=== PATIENT | female | born 1950 | race Caucasian/White ===

== ENCOUNTER 2017-01-14 10:44 | Observation (INO) | payer MEDICARE, BC ==
--- NOTE | 2017-01-14 11:56 | RAD ---
INDICATION: Chest pain. COMPARISON: There are no prior studies available for comparison. TECHNIQUE: A portable view of the chest was obtained. FINDINGS: Cardiac and mediastinal contours appear to be within normal limits. There is a 4 mm faint calcific density which projects over the right midlung suggestive of old granulomatous disease. The lungs are otherwise clear. No pleural effusion is seen. IMPRESSION: NO EVIDENCE FOR ACUTE DISEASE.
[2017-01-14 12:01] LABS: Hematocrit 36 % (35-47); Hemoglobin 12.2 g/dl (12.0-16.0); Mean Corpuscular HGB Conc 34 g/dl (31-36); Mean Corpuscular Hemoglobin 32 pg (27-31); Mean Corpuscular Volume 94 fL (80-97); Mean Platelet Volume 9 um3 (7.4-10.4); Red Blood Count 3.85 10^6/ul (4.0-5.4); Red Cell Distribution Width 13 % (10.5-15); White Blood Count 7.8 10^3/ul (3.5-10.8)
[2017-01-14 12:14] LABS: Albumin 3.8 g/dL (3.2-5.2); BUN/Creatinine Ratio 14.2 (8-20); Calcium 9.1 mg/dL (8.6-10.3); EGFR Non-African American 48.2 (>60); Globulin 3.2 g/dL (2-4); Potassium 3.6 mmol/L (3.5-5.0); Total Bilirubin 0.8 mg/dL (0.2-1.0)
[2017-01-14] MEDS ORDERED: Fluticasone NASAL SPRAY 50MCG* 16 gm SPRAY BTL BOTH NARES PRN (14:06)
[2017-01-14] MEDS ORDERED: Albuterol HFA INHALER* 8 gm MDI INH PRN (14:06)
[2017-01-14] MEDS ORDERED: Triamcinolone 0.5% OINT * 15 GM TUBE TOPICAL PRN (14:06)
[2017-01-14] MEDS ORDERED: Dextrose 50% Syringe 50 ML* 25 GM/50 ML SYRINGE IV PUSH PRN (14:10)
[2017-01-14] MEDS ORDERED: hydrALAZINE IV* 20 MG/ML VIAL IV SLOW PU PRN (14:13)
[2017-01-14] MEDS ORDERED: NS 0.9% 1000 ML* 1,000 ML IV SCH (14:45)
--- NOTE | 2017-01-14 15:34 | ED ---
Day Lora Alfonso, scribed for Jam Sims MD on 01/14/17 at 1105 . Abdominal Pain/Female - HPI Summary HPI Summary: This patient is a 66 year old F presenting to [facility] accompanied by with a chief complaint of epigastric pain which began at 1000 this morning. The CC is described as gassy and a pressure. The patient rates the current pain 0/ 10 in severity. Symptoms aggravated by standing. Symptoms alleviated by spontaneous resolution. Symptoms not alleviated by protonix and zantac last night. Patient reports SOB (one month, and currently resolved), and calf swelling (at night). Patient denies diaphoresis, and nausea. PMHx of DM, HTN, and CAD (stent in 2016) - History of Current Complaint Chief Complaint: EDChestPainROMI Stated Complaint: SHORT OF BREATH, CHEST PAIN Time Seen by Provider: 01/14/17 11:02 Hx Obtained From: Patient Onset/Duration: Sudden Onset, Lasting Hours - 1000 today, Still Present Timing: Constant Severity Initially: Mild Severity Currently: None Pain Intensity: 0 Pain Scale Used: 0-10 Numeric Location: Epigastric Character: Other: - gassy and a pressure Aggravating Factor(s): Other: - Standing Alleviating Factor(s): Spontaneous Resolution Associated Signs and Symptoms: Positive: Other: - Patient reports SOB (one month , and currently resolved), and calf swelling (at night). Patient denies diaphoresis, and nausea. Allergies/Adverse Reactions: Allergies Allergy/AdvReac Type Severity Reaction Status Date / Time Adhesive Tape Allergy Rash Verified 01/14/17 11:33 Amoxicillin Allergy Rash Verified 01/14/17 11:33 Aspirin Allergy Bleeding Verified 01/14/17 11:33 Cefaclor [From Ceclor] Allergy Rash Verified 01/14/17 11:33 Cefuroxime [From Ceftin] Allergy Rash Verified 01/14/17 11:33 Ciprofloxacin [From Cipro] Allergy Rash Verified 01/14/17 11:33 Clarithromycin [From Biaxin] Allergy Rash Verified 01/14/17 11:33 Diclofenac [From Arthrotec] Allergy Headache Verified 01/14/17 11:33 Erythromycin Allergy Rash Verified 01/14/17 11:33 Meperidine [From Demerol HCl] Allergy Nausea Verified 01/14/17 11:33 Misoprostol [From Arthrotec] Allergy Headache Verified 01/14/17 11:33 Home Medications: Home Medications Albuterol inh POWDER (NF) [Proair Respiclick] 1 puff INH Q6HR PRN 01/14/17 [ History Confirmed 01/14/17] Aspirin EC Low Dose* [Ecotrin EC Low Dose 81 MG*] 81 mg PO DAILY 01/14/17 [ History Confirmed 01/14/17] Atorvastatin* [Lipitor*] 40 mg PO DAILY 01/14/17 [History Confirmed 01/14/17] Bisoprolol & Hydrochlorothiazi [Ziac 5-6.25 mg-] 1 tab PO DAILY 01/14/17 [ History Confirmed 01/14/17] Calcium Carbonate [Calcium 600] 600 mg PO BID 01/14/17 [History Confirmed ] Cyanocobalamin TAB* [Vitamin B12 TAB*] 500 mcg PO DAILY 01/14/17 [History Confirmed 01/14/17] Flaxseed (Linseed) [Flaxseed Oil] 1,400 mg PO QAM 01/14/17 [History Confirmed ] Fluocinonide 0.05% CM (NF) [Lidex 0.05% CREAM (NF)] 1 applic TOPICAL QPM PRN 06/01 [History Confirmed 01/14/17] Fluticasone NASAL SPRAY 50MCG* [Flonase NASAL SPRAY 50MCG*] 2 spray BOTH NARES QAM PRN 01/14/17 [History Confirmed 01/14/17] Gabapentin CAP(*) [Neurontin 300 CAP(*)] 300 mg PO TID 01/14/17 [History Confirmed 01/14/17] Levothyroxine TAB* [Synthroid TAB*] 50 mcg PO QAM 01/14/17 [History Confirmed ] Olmesartan Medoxomil-Hydrochlo [Benicar Hct 40-25 mg] 0.5 tab PO DAILY 01/14/17 [History Confirmed 01/14/17] Triamcinolone 0.1% CREAM(NF) [Kenalog Cream 0.1%(NF)] 1 applic TOPICAL BID PRN 01/14/17 [History Confirmed 01/14/17] PMH/Surg Hx/FS Hx/Imm Hx Endocrine/Hematology History: Reports: Hx Diabetes Cardiovascular History: Reports: Hx Coronary Artery Disease, Hx Hypertension - Surgical History Surgery Procedure, Year, and Place: LEFT KNEE, CHOLECYSTECTOMY, SINUS Infectious Disease History: Denies: Traveled Outside the [place] in Last 30 Days - Family History Known Family History: Positive: Cardiac Disease, Diabetes - Social History Alcohol Use: None Substance Use Type: Reports: None Hx Tobacco Use: No Smoking Status (MU): Never Smoked Tobacco Review of Systems Negative: Skin Diaphoresis Positive: Shortness Of Breath - one month, and currently resolved Positive: Abdominal Pain - Epigastric. Negative: Nausea Positive: Other - calf swelling (at night) All Other Systems Reviewed And Are Negative: Yes Physical Exam Triage Information Reviewed: Yes Vital Signs On Initial Exam: Initial Vitals Temp Pulse Resp BP Pulse Ox 97.4 F 67 20 131/66 98 01/14/17 10:54 01/14/17 10:54 01/14/17 10:54 01/14/17 10:54 01/14/17 10:54 Vital Signs Reviewed: Yes Appearance: Positive: Well-Appearing, No Pain Distress Skin: Positive: Warm, Skin Color Reflects Adequate Perfusion, Dry Head/Face: Positive: Normal Head/Face Inspection Eyes: Positive: Normal ENT: Positive: Normal ENT inspection Neck: Positive: Supple, Nontender Respiratory/Lung Sounds: Positive: Clear to Auscultation, Breath Sounds Present Cardiovascular: Positive: RRR Abdomen Description: Positive: Nontender, Soft Bowel Sounds: Positive: Present Musculoskeletal: Positive: Normal Neurological: Positive: Normal, Sensory/Motor Intact, Alert, Oriented to Person Place, Time, CN Intact II-III Psychiatric: Positive: Affect/Mood Appropriate Diagnostics - Vital Signs Vital Signs Temp Pulse Resp BP Pulse Ox 01/14/17 10:54 97.4 F 67 20 131/66 98 - Laboratory Lab Results: Lab Results 01/14/17 01/14/17 01/14/17 Range/Units 11:20 11:20 11:20 WBC 7.8 (3.5-10.8) 10^3/ul RBC 3.85 L (4.0-5.4) 10^6/ul Hgb 12.2 (12.0-16.0) g/dl Hct 36 (35-47) % MCV 94 (80-97) fL MCH 32 H (27-31) pg MCHC 34 (31-36) g/dl RDW 13 (10.5-15) % Plt Count 229 (150-450) 10^3/ul MPV 9 (7.4-10.4) um3 Neut % (Auto) 65.9 (38-83) % Lymph % (Auto) 23.5 L (25-47) % [place] % (Auto) 8.0 (1-9) % Eos % (Auto) 1.7 (0-6) % Baso % (Auto) 0.9 (0-2) % Absolute Neuts (auto) 5.1 (1.5-7.7) 10^3/ul Absolute Lymphs (auto) 1.8 (1.0-4.8) 10^3/ul Absolute Monos (auto) 0.6 (0-0.8) 10^3/ul Absolute Eos (auto) 0.1 (0-0.6) 10^3/ul Absolute Basos (auto) 0.1 (0-0.2) 10^3/ul Absolute Nucleated RBC 0.01 10^3/ul Nucleated RBC % 0.1 INR (Anticoag Therapy) (0.89-1.11) D-Dimer, Quantitative (Less Than 230) ng/mL Sodium 139 (133-145) mmol/L Potassium 3.6 (3.5-5.0) mmol/L Chloride 109 (101-111) mmol/L Carbon Dioxide 20 L (22-32) mmol/L Anion Gap 10 (2-11) mmol/L BUN 16 (6-24) mg/dL Creatinine 1.13 H (0.51-0.95) mg/dL Est GFR ( Amer) Pending Est GFR (Non-Af Amer) Pending BUN/Creatinine Ratio 14.2 (8-20) Glucose 196 H (70-100) mg/dL Lactic Acid 2.6 H* (0.5-2.0) mmol/L Calcium 9.1 (8.6-10.3) mg/dL Total Bilirubin Pending AST Pending ALT Pending Alkaline Phosphatase Pending Troponin I 0.00 (<0.04) ng/mL Total Protein 7.0 (6.4-8.9) g/dL Albumin 3.8 (3.2-5.2) g/dL Globulin Pending Albumin/Globulin Ratio Pending 01/14/17 Range/Units 11:20 WBC (3.5-10.8) 10^3/ul RBC (4.0-5.4) 10^6/ul Hgb (12.0-16.0) g/dl Hct (35-47) % MCV (80-97) fL MCH (27-31) pg MCHC (31-36) g/dl RDW (10.5-15) % Plt Count (150-450) 10^3/ul MPV (7.4-10.4) um3 Neut % (Auto) (38-83) % Lymph % (Auto) (25-47) % [place] % (Auto) (1-9) % Eos % (Auto) (0-6) % Baso % (Auto) (0-2) % Absolute Neuts (auto) (1.5-7.7) 10^3/ul Absolute Lymphs (auto) (1.0-4.8) 10^3/ul Absolute Monos (auto) (0-0.8) 10^3/ul Absolute Eos (auto) (0-0.6) 10^3/ul Absolute Basos (auto) (0-0.2) 10^3/ul Absolute Nucleated RBC 10^3/ul Nucleated RBC % INR (Anticoag Therapy) 0.86 L (0.89-1.11) D-Dimer, Quantitative 392 H (Less Than 230) ng/mL Sodium (133-145) mmol/L Potassium (3.5-5.0) mmol/L Chloride (101-111) mmol/L Carbon Dioxide (22-32) mmol/L Anion Gap (2-11) mmol/L BUN (6-24) mg/dL Creatinine (0.51-0.95) mg/dL Est GFR ( Amer) Est GFR (Non-Af Amer) BUN/Creatinine Ratio (8-20) Glucose (70-100) mg/dL Lactic Acid (0.5-2.0) mmol/L Calcium (8.6-10.3) mg/dL Total Bilirubin AST ALT Alkaline Phosphatase Troponin I (<0.04) ng/mL Total Protein (6.4-8.9) g/dL Albumin (3.2-5.2) g/dL Globulin Albumin/Globulin Ratio Result Diagrams: 01/14/17 11:20 01/14/17 11:20 Lab Statement: Any lab studies that have been ordered have been reviewed, and results considered in the medical decision making process. - Radiology CXR Radiology Interpretation Completed By: Radiologist - NO EVIDENCE FOR ACUTE DISEASE. ED physician has reviewed this radiology report and agrees. - EKG 1100 Cardiac Rate: NL - BPM 60 EKG Rhythm: Sinus Rhythm EKG Interpretation: First degree block Abdominal Pain Fem Course/Dx - Course Course Of Treatment: Ms. Reed did well here in the ED however, she had CP and is a high risk patient and will be admitted to the hopitalist service. - Diagnoses Provider Diagnoses: Chest pain - Provider Notifications Discussed Care Of Patient With: Donna Berrios Time Discussed With Above Provider: 13:35 Instructed by Provider To: Other - Consulted Dr. Berrios (hospitalist) who agrees to admit. Discharge - Discharge Plan Condition: Stable Disposition: ADMITTED TO [facility] The documentation as recorded by the Day castaneda Alfonso accurately reflects the service I personally performed and the decisions made by , Jam Sims MD.
[2017-01-14] MEDS: Insulin LISPRO* 1 UNITS UNIT SUBCUT SCH ×2 (17:19→20:31)
[2017-01-14] MEDS: Omeprazole CAP* 20 MG PO SCH (17:34)
[2017-01-14] MEDS: Bethanechol TAB* 25 MG PO SCH ×2 (17:34→20:31)
--- NOTE | 2017-01-14 17:42 | ECHO ---
Patient: MAXIMO LITTLEJOHN Rec#: [id number] : 1950 Date: 01/14/2017 Age: 66y Height: 167.64 cm / 66.0 in Weight: 87.77 kg / 193.4 lbs Sex: F BSA: 1.97 Room#: [facility] Admit Date#: 01/14/2017 Type: Inpatient Referring: Donna Johnson MD Reading: Herman Emanuel DO Flight Information Expediter: Tatyana Rushing RDCS CC: Elina James MD Transthoracic Echocardiogram Indication: Chest pain, SOB BP: 159/60 HR: 54 Rhythm: Bradycardia Findings History: S/P PCI 07/01 Sarah, HTN, and DM. Technical Comments: The study quality is fair. The study is technically limited due to patient body habitus. Completed at 1655. Left Ventricle: The left ventricular chamber size is normal. Mild concentric left ventricular hypertrophy is observed. Global left ventricular wall motion and contractility are within normal limits. There is normal left ventricular systolic function. The estimated ejection fraction is 60-65%. There is no consistent Doppler evidence of clinically significant diastolic dysfunction. Left Atrium: The left atrium is slightly dilated. Right Ventricle: The right ventricular chamber size and systolic function are within normal limits. Right Atrium: The right atrial cavity size is normal. Aortic Valve: The aortic valve is trileaflet. There is evidence of aortic sclerosis without stenosis. There is a trace of aortic regurgitation. Mitral Valve: The mitral valve leaflets are mildly thickened. There is mild mitral regurgitation. There is no evidence of mitral stenosis. Tricuspid Valve: The tricuspid valve leaflets are normal. There is trace tricuspid regurgitation. No pulmonary hypertension is noted. There is no tricuspid stenosis. Pulmonic Valve: The pulmonic valve appears normal. There is mild pulmonic regurgitation. There is no pulmonic stenosis. Pericardium: There is no significant pericardial effusion. Aorta: There is no dilatation of the ascending aorta. There is no dilatation of the aortic arch. The aortic root is normal in size. Pulmonary Artery: The main pulmonary artery is not well visualized. Venous: The venous system is not well visualized. Conclusions The left ventricular chamber size is normal. Mild concentric left ventricular hypertrophy is observed. There is normal left ventricular systolic function. Global left ventricular wall motion and contractility are within normal limits. The estimated LV ejection fraction is 60-65%. The left atrium is slightly dilated. The right ventricular chamber size and systolic function are within normal limits. There is evidence of aortic sclerosis without stenosis. There is mild mitral regurgitation. No prior studies available for comparison at time of interpretation Measurements Name Value Normal Range RVIDd (AP) 2D 3.9 cm (0.9 - 2.6) RVDdMajor (2D) 4.3 cm (2.2 - 4.4) RAd ISD 4CH 4.6 cm (3.4 - 4.9) RA (A4C)W 3.5 cm (2.9 - 4.6) IVSd (2D) 1.1 cm (0.6 - 1) LVPWd (2D) 1.1 cm (0.6 - 1) LVIDd (2D) 4.6 cm (3.6 - 5.4) LVIDs (2D) 2.8 cm - LV FS (2D) 38 % (25 - 45) Aortic Annulus 1.8 cm (1.4 - 2.6) Ao root diameter (2D) 2.8 cm (2.1 - 3.5) Ascending Ao 2.8 cm (2.1 - 3.4) Aortic arch 2.6 cm (1.8 - 3.4) LA dimension (AP) 2D 3.9 cm (2.3 - 3.8) LAd ISD 4CH 5.5 cm (2.9 - 5.3) LA ISD 4CH W 4.2 cm (2.5 - 4.5) Name Value Normal Range LA ESV SP 4CH (A/L) 63 ml - LA ESV SP 2CH (A/L) 52 ml - LA ESV BP (A/L) 60 ml - LA ESV BP (A/L) index 30.62 ml/m2 - LA ESV SP 4CH (MOD) 57 ml - LA ESV SP 2CH (MOD) 50 ml - Name Value Normal Range MV E-wave Vmax 0.87 m/sec - MV deceleration time 243.7 msec - MV A-wave Vmax 0.96 m/sec - MV E:A ratio 0.9 ratio - LV septal e' Vmax 0.08 m/sec - LV lateral e' Vmax 0.09 m/sec - LV E:e' septal ratio 10.88 ratio - LV E:e' lateral ratio 9.67 ratio - Name Value Normal Range AV Vmax 1.38 m/sec - AV VTI 35.9 cm - AV peak gradient 7.66 mmHg - AV mean gradient 4.03 mmHg - LVOT Vmax 0.92 m/sec - LVOT VTI 22.98 cm - LVOT peak gradient 3.39 mmHg - LVOT mean gradient 1.67 mmHg - JAVI Vmax 0.81 m/sec - Name Value Normal Range TR Vmax 1.45 m/sec - TR peak gradient 8 mmHg - RAP 8 mmHg - RVSP 16 mmHg - Name Value Normal Range PV Vmax 0.95 m/sec - PV peak gradient 3.61 mmHg - RI end-diastolic Vmax 0.97 m/sec -
[2017-01-14] MEDS ORDERED: Iodixanol* (CONTRAST) 320 MG/ML 100 ML SDV IV ONE (18:38)
--- NOTE | 2017-01-14 19:58 | RAD ---
Indication: Chest pain, dyspnea. Contrast: Administered 75.1 ml of VISIPAQUE 320 mg/ml CTA of the chest was performed after IV contrast administration. Coronal and sagittal reconstructed images were obtained. The pulmonary arterial tree is well opacified. In the left lower lobe medial basal segment of the segmental arteries. There is a filling defect noted suggestive of a small pulmonary embolus. No pleural fluid is identified. No other pulmonary embolus is noted. There is no mediastinal or hilar adenopathy noted. No evidence of aortic dissection is noted. The heart demonstrates no pericardial effusion. The abdominal organs demonstrates liver to be diffusely decreased in density consistent with hepatic steatosis. Degenerative changes of the lower thoracic spine is noted. IMPRESSION: SMALL FILLING DEFECT IN A SINGLE LEFT LOWER LOBE SUBSEGMENTAL ARTERIES CONSISTENT WITH A SMALL PULMONARY EMBOLUS. NO OTHER FILLING DEFECTS ARE NOTED. HEPATIC STEATOSIS IS NOTED.
[2017-01-14] MEDS: Enoxaparin(*) 100 MG/ML SYR SUBCUT SCH (20:30)
[2017-01-14] MEDS: Gabapentin CAP(*) 300 MG PO SCH (20:30)
[2017-01-14] MEDS: Calcium Carbonate TAB* 1250 MG (CALCIUM 500 MG) PO SCH (20:34)
[2017-01-14] MEDS ORDERED: Heparin VIAL(*) 5000 UNITS/ML VIAL (FIVE THOUSAND) SUBCUT SCH (22:00)
--- NOTE | 2017-01-14 23:54 | HP ---
CC: Dr. James; Dr. Owen HISTORY AND PHYSICAL: DATE OF ADMISSION: 01/14/17 TIME OF EVALUATION: 1:50 p.m. PRIMARY CARE PROVIDER: Dr. James. RECORDS ASSISTANT: Dr. Owen. CHIEF COMPLAINT: Chest pressure. HISTORY OF PRESENT ILLNESS: Ms. Reed is a 66-year-old lady with a past medical history of asthma , CAD, status post stent, hypertension, type 2 diabetes, GERD, who presents to the emergency room wi th complaints of chest pressure. She states that she was in her usual state of health yesterday, but she woke up today feeling bloate d. She went for a walk with her dog and she was able to walk 3 quarters of a mile, but she was not feeling well, although she could not pinpoint exactly what was bothering her. After that, she was a ble to feed her horse, but she was feeling very tired and decided to go back home where she started to feel chest pressure. She said it felt like something from her stomach was trying to come up to h er chest and this was associated with some dyspnea. She denies chest pain, but states that this pre ssure was bothersome. She does have an appointment to see her art glass designer and primary care provide r on 01/21/17, but she got concern with her symptoms and decided to come to the emergency room for f urther evaluation. She denies fever, chills, cough. Her only recent trip was back and forth from [facility] that she had l aser eye treatment yesterday. PAST MEDICAL HISTORY: 1. Coronary artery disease. As per patient, she had the stent that showed the LAD in June 2015 . 2. Hypertension. 3. Type 2 diabetes. 4. Hyperlipidemia. 5. GERD. MEDICATION LIST: 1. Albuterol HFA 1 puff inhaled q.6 hours p.r.n. shortness of breath. 2. Aspirin 81 mg p.o. daily. 3. Atorvastatin 20 mg p.o. daily. 4. Bethanechol 25 mg p.o. 4 times a day. 5. Bisoprolol/hydrochlorothiazide 5/6.25 one tablet p.o. daily. 6. Calcium carbonate 600 mg p.o. b.i.d. 7. Citalopram 10 mg p.o. daily. 8. Cyanocobalamin 500 mcg p.o. daily. 9. Flaccid oil 1400 mg p.o. q.a.m. 10. Lidex 0.05% cream topical as needed for itching at bedtime. 11. Fluticasone nasal spray 2 sprays both nares q.a.m. as needed for nasal congestion. 12. Gabapentin 300 mg p.o. t.i.d. 13. Levothyroxine 50 mcg p.o. q.a.m. 14. Metformin 1000 mg p.o. b.i.d. 15. Multivitamin 1 tablet p.o. daily. 16. Olmesartan/hydrochlorothiazide 40/25 mg half a tablet p.o. daily. 17. Pantoprazole 40 mg p.o. b.i.d. 18. Triamcinolone 0.1% topical b.i.d. as needed for itching. ALLERGIES: The patient has reactions to multiple medications. She had a rash with ADHESIVE TAPE, A MOXICILLIN, CEFACLOR, CEFUROXIME, CIPROFLOXACIN, CLARITHROMYCIN, ERYTHROMYCIN. She had bleeding wit h ASPIRIN. She had headache with DICLOFENAC and MISOPROSTOL and she had nausea with MEPERIDINE. FAMILY HISTORY: Reviewed and noncontributory. SOCIAL HISTORY: The patient denies tobacco, alcohol, or drug use. Surrogate decision maker is her brother, Jorden Reed, phone number is [phone]. REVIEW OF SYSTEMS: A 14-point review of systems was performed and all the pertinent negative and po sitive findings are in the HPI. PHYSICAL EXAMINATION GENERAL: The patient is a pleasant elderly lady, lying in the bed, in no acute distress. VITAL SIGNS: Temperature 97.4, heart rate is 56, respiratory rate is 20, oxygen saturation is 99% o n room air, blood pressure is 176/77. HEENT: Pupils are equal. Moist mucous membranes. CVS: Normal S1 and S2. Regular rate and rhythm. CHEST: Breath sounds present bilaterally with no added sounds. ABDOMEN: Soft, nontender, nondistended. Bowel sounds are present. EXTREMITIES: No edema. No calf tenderness. NEURO: She is alert, awake, and oriented x3. She is able to move all 4 extremities. DIAGNOSTIC STUDIES/LAB DATA: The patient had a CBC that showed a WBC of 7.8, hemoglobin of 12.2, h ematocrit of 36, platelets of 229, 65% neutrophils, INR was 0.86. D-dimer was 392. Chemistry showe d a sodium of 139, potassium of 3.6, chloride of 109, bicarb of 20, anion gap of 10, BUN of 16, crea tinine of 1.1, glucose of 196, lactic acid of 2.6, calcium of 9.1. LFTs are pending at the time of dictation. Her first troponin was 0. Chest x-ray showed no evidence for acute disease. EKG done on 01/14/17 at 11 a.m. shows sinus rhythm at 60 beats per minute with no ST-T changes. No significant change when compared to her prior EKG from August 2008. ASSESSMENT AND PLAN: Mrs. Reed is a 66-year-old lady with a past medical history of coronary art alisa disease, status post stent, hypertension, hyperlipidemia, diabetes, who presents to the emergenc y room with complaints of chest pressure and shortness of breath presenting to be admitted to rule o ut acute coronary syndrome. 1. Chest pressure, rule out acute coronary syndrome, rule out pulmonary embolism. The patient state s that her chest pressure has resolved at this time, but she states it was intense earlier today ass ociated with shortness of breath. She will be admitted for observation to telemetry floor. We are going to check serial troponins and an echocardiogram. If acute coronary syndrome is ruled out, she would prefer to pursue a stress test as outpatient with her own art glass designer, Dr. Owen. She a lreamagui has an appointment scheduled to see him on 01/21/17. Her D- dimer was elevated at 394, so we are going to check a CT of the chest to rule out pulmonary embolism. The patient will be continued on her cardiac medications including aspirin and statin and beta-rinku. 2. Hypertension. It is little uncontrolled at this time and may be playing a role on her symptoms. I am going to continue her usual antihypertensives and then add hydralazine IV on a p.r.n. basis. 3. Lactic acidosis. Suspect mild dehydration in the setting of metformin use. She is going to rece holger gentle IV fluids. I am going to monitor her lactic acid. 4. Type 2 diabetes. I am holding metformin for now, is going to be consistent carb diet. We are g oing to check her fingersticks a.c., h.s. and cover with the lispro sliding scale. 5. DVT prophylaxis. The patient has a score of 3 on the DVT prophylaxis Risk Assessment Guide, and she will be started on subcutaneous heparin. 6. Code status is full. TIME SPENT: Approximately 60 minutes were spent with the patient interview, medical records review, physical examination to complete this admission, more than half of this time was spent [id number] with the patient in coordination of care. [id number]/[facility] #: [id number]
[2017-01-15] MEDS ORDERED: Levothyroxine TAB* 50 MCG TAB PO SCH (06:00)
[2017-01-15] MEDS: Insulin LISPRO* 1 UNITS UNIT SUBCUT SCH ×2 (08:15→12:56)
[2017-01-15] MEDS: Omeprazole CAP* 20 MG PO SCH (08:16)
[2017-01-15] MEDS: Gabapentin CAP(*) 300 MG PO SCH ×2 (08:18→12:55)
[2017-01-15] MEDS: Enoxaparin(*) 100 MG/ML SYR SUBCUT SCH (08:20)
[2017-01-15 08:42] VITALS: BP 154/70
[2017-01-15] MEDS: Calcium Carbonate TAB* 1250 MG (CALCIUM 500 MG) PO SCH (08:43)
[2017-01-15] MEDS: Bethanechol TAB* 25 MG PO SCH ×2 (08:43→12:57)
[2017-01-15] MEDS ORDERED: Acetaminophen TAB* 325 MG PO PRN (08:58)
[2017-01-15] MEDS ORDERED: Hydrochlorothiazide TAB* 25 MG PO SCH (09:00)
[2017-01-15] MEDS ORDERED: OLMESARTAN MEDOXOMIL HYDROCHLO PO SCH (09:00)
[2017-01-15] MEDS ORDERED: Bisoprolol TAB* 5 MG PO SCH (09:00)
[2017-01-15] MEDS ORDERED: Multivitamins/Minerals TAB PO SCH (09:00)
[2017-01-15] MEDS ORDERED: Atorvastatin* 40 MG TAB PO SCH (09:00)
[2017-01-15] MEDS ORDERED: Aspirin EC Low Dose* 81 MG TAB.EC PO SCH (09:00)
[2017-01-15] MEDS ORDERED: Citalopram TAB* 10 MG PO SCH (09:00)
[2017-01-15] MEDS ORDERED: Valsartan TAB* 160 MG PO SCH (09:00)
[2017-01-15] MEDS ORDERED: HYDROCHLOROTHIAZI PO SCH (09:00)
[2017-01-15] MEDS ORDERED: BISOPROLOL PO SCH (09:00)
[2017-01-15] MEDS ORDERED: Cyanocobalamin TAB* 500 MCG PO SCH (09:00)
--- NOTE | 2017-01-15 11:10 | RAD ---
INDICATION: Unprovoked pulmonary embolism. COMPARISON: There are no prior studies available for comparison. TECHNIQUE: Multiple real-time, color flow and Doppler tracings of both lower extremities were obtained. FINDINGS: The common femoral, femoral, profunda femoral and popliteal veins all demonstrate normal compressibility, augmentation with compression and phasic response with respiration. 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 The posterior tibial and peroneal veins demonstrate normal compressibility and augmentation with compression. IMPRESSION: NO EVIDENCE FOR DEEP VENOUS THROMBOSIS.
[2017-01-15] MEDS ORDERED: Influenza VAC *QUAD* 2017-18* 0.5 ML SYRINGE IM ONE (12:00)
--- NOTE | 2017-01-15 16:48 | DS ---
CC: Chest pressure, SOB HPI/brief hospital course: This is a 66 yo female with history of CAD who presented to the ED with chest pain and shortness of breath that started the morning of admission. It began when she was walking her dog. She was able to feed her horses, but continued to have left-sided chest pain described as pressure-like and shortness of breath. Upon presentation to the ED, she continued to have pressure that was unrelieved by nitro, and her dyspnea on exertion persisted. She reports adherence with aspirin, statin, and beta rinku. ROS (on morning of discharge): Chest pressure is improving, but still present. She becomes mildly short of breath with exertion, which is new for her. No palpitations, lightheadedness, syncope, headache, nausea, vomiting, melena. PMH: DM2 CAD (with stent) Gastroparesis HTN depression Allergies: NKDA Physical Exam: Gen: Alert, well-appearing, no distress HEENT: PERRL, no nystagmus, EOMI Neck: No JVP, no lymphadenopathy Chest: RRR, no murmurs, PMI nondisplaced, lungs clear throughout Abd: Soft, nontender, nondistended Ext: No swelling, equal in diameter, no echymoses Labs: Hospital Course by Problem: 1. Subsegmental PE. A CTA was ordered when a d-dimer returned at 326. This is within normal limits when corrected for her age. Unfortunately it incidentally found a left-sided subsegmental PE. This is unprovoked. Ms. Reed has no known active cancer and is up to date on her colonoscopy and mammogram, and has had no vaginal bleeding. She does have a long history of GERD and is scheduled for an EGD in February, so undiscovered malignancy is possible, but unknown. She has had no recent travel and is a never-smoker. Lower extremity dopplers were negative for DVT. I had a long discussion with Ms. Reed about this incidental finding. While the CHEST guidelines suggest surveillance is acceptable in subsegmental PEs in patients with low risk for recurrence or with alternative explanations for their dyspnea/chest pain, we found no alternative explanation for her persistent dyspnea on exertion, and she is low risk for bleeding. After a discussion with Ms. Reed about the risks and benefits of anticoagulation, we chose to anticoagulate her PE for 3 months over serial dopplers, and she will continue discussing this with her PCP, who she is scheduled to see this week. I instructed that she return to the ED if she experiences melena, headache, or any other evidence of bleeding. I offered the alternative of surveillance with serial dopplers, but she agreed to xarelto for a short time. 2. CAD. Troponins were negative x 3. She was continued on asa, statin, bb.
[2017-01-15] MEDS ORDERED: Rivaroxaban TAB(*) 15 MG PO SCH (21:00)
== END 2017-01-15 16:00 | disposition home or self-care (01) ==
LOC: ED 10:44 → MEDTELE 14:03
PROVIDERS: ADMIT Internal Medicine; ATTEND Internal Medicine
DX: R07.9 Chest pain, unspecified (principal); I26.99 Other pulmonary embolism without acute cor pulmonale; R06.02 Shortness of breath; I25.10 Atherosclerotic heart disease of native coronary artery without angina pectoris; Z95.5 Presence of coronary angioplasty implant and graft; E11.43 Type 2 diabetes mellitus with diabetic autonomic (poly)neuropathy; K31.84 Gastroparesis; Z79.84 Long term (current) use of oral hypoglycemic drugs; I10 Essential (primary) hypertension; E87.2 Acidosis; R10.13 Epigastric pain
CPT/HCPCS: 36415; 71010; 71275; 80053; 83605; 84484; 85025; 85379; 85610; 90471; 90686; 93005; 93306; 93970; 96360; 96361; 99283; A9270-GY; G0008; G0378; J1650; Q9967

== ENCOUNTER 2018-09-26 09:38 | Emergency (ER) | payer MEDICARE, BC ==
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
[2018-09-26 11:53] VITALS: BP 171/81
== END 2018-09-26 11:49 | disposition home or self-care (01) ==
LOC: ED 09:38
DX: S05.12XA Contusion of eyeball and orbital tissues, left eye, initial encounter (principal); W18.39XA Other fall on same level, initial encounter; Y93.E1 Activity, personal bathing and showering; Y92.012 Bathroom of single-family (private) house as the place of occurrence of the external cause; Y99.8 Other external cause status; H11.32 Conjunctival hemorrhage, left eye
CPT/HCPCS: 70486; 99282